=== PATIENT | female | born 1980 | race Caucasian/White ===

== ENCOUNTER → 2017-02-12 | Outpatient (CLI) | payer OTHER ==
[~2017-02-12] VITALS: Ht 175.3 cm; Wt 82.7 kg
[~2017-02-12] MED LIST: CEFAZOLIN PMX 1GM/50ML 50 ML ONE; DOCUSATE 100 MG CAPSULE ONE; HYDR-3240 PO; IBUP-1222 PO; PREN1TAB60 PO; PRENATAL VIT/IRON/FA 1 EACH TABLET ONE; SENN-1 PO
[2017-02-12 17:21] VITALS: BP 131/68
== END | disposition home or self-care (01) ==
LOC: LDOP 17:09
PROVIDERS: ATTEND Obstetrics & Gynecology
DX: O80 Encounter for full-term uncomplicated delivery (principal)
CPT/HCPCS: 59025; 76819; 99201; G0463